=== PATIENT | male | born 1970 | race Caucasian/White ===

== ENCOUNTER 2017-04-26 14:52 | Day surgery (SDC) | payer BC ==
[~2017-04-26] VITALS: Ht 188 cm; Wt 139.3 kg
[2017-04-26 15:59] LABS: BASOPHILS 0.2 % (0-2); EOSINOPHILS 2.8 % (0-7); HEMATOCRIT 40.6 % (42.0-54.0); HEMOGLOBIN 13.8 g/dL (13.5-17.5); IMMATURE GRANULOCYTES 0.8 % (0-5); LYMPHOCYTES 36.9 % (15-50); MCH 30.6 pg (26.0-34.0); MONOCYTES 7.7 % (2-11); NEUTROPHILS 51.6 % (40-80); PLATELET COUNT 201 10x3/uL (130-400); RBC 4.51 10x6/uL (4.20-6.10); RDW 13.1 % (11.5-14.5); WBC 9.7 10x3/uL (4.8-10.8)
[2017-04-26 16:04] LABS: APPEARANCE CLEAR (CLEAR); BILIRUBIN NEGATIVE (NEGATIVE); COLOR YELLOW (YELLOW); GLUCOSE NEGATIVE (NEGATIVE); KETONE NEGATIVE (NEGATIVE); LEUKOCYTE ESTERASE TRACE (NEGATIVE); NITRITE NEGATIVE (NEGATIVE); PROTEIN NEGATIVE (NEGATIVE); UROBILINOGEN NORMAL (NORMAL)
[2017-04-26 16:10] LABS: BACTERIA FEW /hpf (NONE SEEN); RED CELLS - URINE 0-5 /hpf (0-5); WHITE CELLS - URINE 0-5 /hpf (0-5)
[2017-04-26 16:13] LABS: ALBUMIN 3.5 g/dL (3.4-5.0); ALKALINE PHOSPHATASE 88 U/L (46-116); ALT (SGPT) 93 U/L (10-68); BILIRUBIN - TOTAL 0.55 mg/dL (0.2-1.3); CALC OSMOLALITY 280 mosm/kg (275-300); CALCIUM 9.1 mg/dL (8.5-10.1); CARBON DIOXIDE 29.5 mmol/L (21.0-32.0); CHLORIDE - SERUM 105 mmol/L (98-107); CREATININE - SERUM 1.1 mg/dL (0.6-1.3); GLUCOSE 86 mg/dL (74-106); PROTEIN - SERUM 7.7 g/dL (6.4-8.2); SODIUM 141 mmol/L (136-145); UREA NITROGEN 16 mg/dL (7-18); eGFR NON AFRICAN AMERICAN 77 mL/min (90-120)
[2017-04-26] MEDS ORDERED: PRINIVIL20 MG PO (18:37)
[2017-04-26] MEDS ORDERED: PAXIL40 MG PO (18:38)
[2017-04-26] MEDS ORDERED: LOPRESSOR25 MG PO (18:38)
[2017-04-26] MEDS ORDERED: FLOMAX0.4 MG PO (18:39)
[2017-04-26] MEDS ORDERED: SEROQUEL50 MG PO (18:39)
[2017-04-26] MEDS ORDERED: PERCOCET 10/3251 TA1 PO (18:40)
[2017-04-26] MEDS ORDERED: TORADOL10 MG PO (18:40)
--- NOTE | 2017-04-26 19:53 | NUR ---
TO SURGERY VIA STRETCHER
[2017-04-26 20:00] VITALS: BP 146/72
[2017-04-26 23:39] VITALS: BP 146/92; Ht 188 cm; Wt 139.3 kg
--- NOTE | 2017-04-26 23:50 | NUR ---
ASSESSMENT COMPLETE FOR WAKE-UP BED PATIENT. PT VOIDING BLOODY URINE. C/O HEADACHE AND BP SLIGHTLY ELEVATED.
[2017-04-27] VITALS: BP 139/84
--- NOTE | 2017-04-27 00:10 | NUR ---
DR HERNANDEZ CALLED FOR MED FOR HEADACHE. ORDER RECEIVED FOR IMMITREX 100 ML PO X1, PRIOR TO PT BEING DISCHARGED HOME.
[2017-04-27 04:00] VITALS: BP 130/82
--- NOTE | 2017-04-27 07:30 | NUR ---
PT ASSESSMENT COMPLETE AWAKE AND ALERT ORINETD X 3 LUNGS CLEAR BILATERALLY NO ACUTE DISTRESS NTOED VOICES ALL NEEDS TO STAFF. STATES THAT HEADACHE IS RELEIVED AND IS READY FOR DISCHARGE THIS AM. WILL DISCHARGE PER ORDER THIS AM.
[2017-04-27 08:55] VITALS: BP 136/85
--- NOTE | 2017-04-27 10:00 | NUR ---
PT DISCHARGE WITH MOTHER VIA PRIVATE VEHICLE.
--- NOTE | 2017-05-01 09:01 | OP ---
PATIENT NAME: JOSE RAMON WILLIAMSON MEDICAL RECORD: [id number] :74 LOCATION:[facility] ADMISSION DATE: SURGEON: DEYVI HERNANDEZ MD DATE OF OPERATION: 04/26/2017 SURGEON: Deyvi Hernandez MD ANESTHESIA: General anesthesia by Faith Barlow CRNA PREOPERATIVE DIAGNOSIS: Right distal ureteral stone, 5mm. POSTOPERATIVE DIAGNOSIS: Right distal ureteral stone, 5mm. FINDINGS: Radiodense distal right ureteral 5-mm stone. BPH with tall bladder neck. Single ureteral orifices bilaterally in the bladder. No bladder tumors. PROCEDURE: Cystoscopy, right ureteroscopy and stone extraction, right ureteral stent insertion 6-[place] x 26 cm with string attached. SPECIMEN: Right ureteral stone. COMPLICATIONS: None. BLOOD LOSS: None. CLINICAL HISTORY AND HOSPITAL COURSE: This is a 47-year-old male with a prior history of kidney stones. For the past 5 days, he has had issues with right flank pain radiating to the right lower quadrant and the right testicle. He was actually in another town when this hit and he went to the Emergency Room there. They diagnosed the ureteral stone in the right side. He returned here. For the past 5 days, he has had ongoing pain. He finally came to the Emergency Room today and a CT scan confirmed the distal ureteral stone. He also has some smaller stones in each kidney. HE IS ALLERGIC TO PENICILLIN. We gave him Levaquin 500 mg IV front end technician to the OR. He is going to have the stone removed by ureteroscopy. PROCEDURE: The patient was given induction of general anesthesia. He was placed in the dorsal lithotomy position and prepped and draped. A 20-[place] cystoscope with 30-degree lens was used for visualization. The findings are as outlined above. The prostatic urethra is obstructive and the bladder neck is tall. Lateral lobes are nonobstructive. Going into the bladder, no bladder tumors were seen. The Sensor wire was then inserted into the right ureteral orifice and pushed up into the renal pelvis. A radiodensity was seen which corresponds to the stone. A ureteral dilation balloon and a 21-[place] x 4cm long was placed in the right ureteral orifice. The balloon was inflated with 18 atmospheres of pressure. The pressure was maintained for only a few seconds and then the balloon was deflated. The balloon was entirely removed, leaving the guidewire in place. The cystoscope was then removed, leaving the guidewire in place. Going to the side, the guidewire with the rigid ureteroscope, we found the stone trapped where the ureter crosses over the iliac artery. A 4 wire 0-tip basket was placed around the stone and the stone was extracted under direct vision. It will be sent to pathology for stone analysis. We then inserted the wire back into the cystoscope. Over the wire, we placed the 6-[place] x 26 cm ureteral stent. Once the stent was in correct position, the wire was slowly withdrawn to allow the proximal end to coil. The wire was then OPERATIVE REPORT [id number] JOSE RAMON WILLIAMSON entirely withdrawn. The distal end was pushed into the bladder using the pusher. The string on the distal end of the stent was maintained and it hangs out of the penis in the urethral meatus. The scope was used to empty the bladder and the scope was entirely removed. The string was tied to itself in a knot and cut shorter. The patient will be going home today with a prescription for [place] 5/325 times 30 tablets with no refills. I will see him in followup next week to remove the stent by pulling on the string. TRANSINT:[id number] Voice Confirmation ID: [id number] DOCUMENT ID: [id number] DEYVI HERNANDEZ MD at 0901 CC: [id number] DICTATION DATE: 04/26/172110 SENIOR STAFF [employer]IZED EMPLOYMENT: 04/26/17 [id number] [facility] 04/27/17 [id number] [place] [address]
== END 2017-04-27 12:34 | disposition home or self-care (01) ==
LOC: OBSVTIME → D.OPS 14:52 → D.ER 14:52 → D.MS 18:06 → OBSVTIME 18:07 → EDSTATUS 21:15 → D.MS 04-27 12:34 → D.OPS 04-27 12:34
PROVIDERS: Emergency Medicine; Urology
DX: N20.1 Calculus of ureter (principal); N40.0 Benign prostatic hyperplasia without lower urinary tract symptoms; Z01.812 Encounter for preprocedural laboratory examination